=== PATIENT | male | born 1970 | race Caucasian/White ===

== ENCOUNTER → 2022-02-05 09:04 | Outpatient (BNVA) | payer MEDICARE, MEDICAID, SELFPAY | PROVIDERS: PCP Family Medicine; Referring Provider Family Medicine; Visit Provider Nurse Practitioner Adult Health | DX: Z87.820 Personal history of traumatic brain injury (principal); Z72.0 Tobacco use; F31.9 Bipolar disorder, unspecified; G47.00 Insomnia, unspecified; F11.10 Opioid abuse, uncomplicated; J44.9 Chronic obstructive pulmonary disease, unspecified; G43.709 Chronic migraine without aura, not intractable, without status migrainosus | CPT/HCPCS: 99204; 99205 ==

== ENCOUNTER 2022-06-27 01:02 | Outpatient (CLI) | payer MEDICARE, MEDICAID, SELFPAY ==
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
--- NOTE | 2022-06-27 08:00 | DI.MRI_ITS ---
Exam(s) MR LOWER JOINT LT WO EXAM: MR LOWER JOINT LT WO CLINICAL HISTORY: L KNEE PAIN, S/P MENISCAL REPAIRACUTE MENISCAL TEAR,S83.207A TECHNIQUE: Multiplanar multisequence MRI of the knee was performed. COMPARISON: There are no plain films available time this MRI interpretation. FINDINGS: EFFUSION: There is a small joint effusion. There is no Akhtar cyst in the popliteal fossa. MARROW:There is no evidence of fracture, bone contusion, nor osteochondral defects.. There are no si gnificant osseous lesions. PATELLOFEMORAL COMPARTMENT: The quadriceps tendon is intact. The patellar ligament is intact. There is mild increased signal in the quadriceps fat pad just above the patella. There is a small area of increased signal in the superolateral aspect of the anterior intra-articular Hoffa fat pad. No subc utaneous edema nor fluid anterior to the patella and patellar ligament. Mild uniform thinning of the retropatellar cartilage. No fissure. No osteochondral defect at this l evel. No abnormal intraosseous signal in the patella.There is no intraosseous signal to suggest rece nt patellar dislocation. There are no patellar retinacular tears. CRUCIATE LIGAMENTS: The anterior cruciate ligament is intact.The posterior cruciate ligament is intac t. MEDIAL COMPARTMENT/MEDIAL MENISCUS: There is mild signal abnormality in the posterior horn of the med ial meniscus. There is not violate the articular surface, consistent with myxoid degeneration more s o than a true tear.. There are no chondral defects, osteochondral defects, subarticular marrow edema, nor osteophytes evid ent. MEDIAL COLLATERAL LIGAMENT: Intact LATERAL COMPARTMENT/LATERAL MENISCUS: There is no evidence of lateral meniscal tear.There are no ben dral defects, osteochondral defects, subarticular marrow edema, nor osteophytes evident. ILIOTIBIAL BAND: Intact LATERAL COLLATERAL LIGAMENT COMPLEX: The fibular collateral ligament is intact. The biceps femoris t endon is intact.Popliteus muscle and tendon are intact. IMPRESSION: 1. Mild findings as described above but without obvious internal derangement. No obvious meniscal te ars nor cruciate ligament tears and no evidence of collateral ligament tears. 2. Small joint effusion noted. DATA REPOSITORY:
== END 2022-06-27 01:22 ==
LOC: DI 01:02
PROVIDERS: PCP Family Medicine; Visit Provider Student in an Organized Health Care Education/Training Program
DX: M25.562 Pain in left knee (principal); M25.462 Effusion, left knee; M25.862 Other specified joint disorders, left knee
CPT/HCPCS: 73721

== ENCOUNTER 2022-07-08 13:57 | Outpatient (CLI) | payer MEDICARE, MEDICAID, SELFPAY ==
--- NOTE | 2022-07-08 13:45 | DI.RAD_ITS ---
Exam(s) XR KNEE LT 3V AP,LAT,TERESA EXAM: XR KNEE LT 3V AP,LAT,TERESA CLINICAL HISTORY: left knee pain s/p fall. TECHNIQUE: 2D digital imaging was performed. Three views. COMPARISON: No exams were available for comparison FINDINGS: BONES: No acute fracture is present. No bony destructive lesion is seen. Enthesophyte at quadricep s insertion on the patella. JOINTS: The knee is normally aligned. No joint effusion is seen. No significant degenerative changes. SOFT TISSUE: Normal. IMPRESSION: Patellar enthesophyte. No acute abnormality. DATA REPOSITORY: RADIATION DOSE DELIVERED:
== END 2022-07-08 13:58 | disposition home or self-care (01) ==
LOC: DIORS 13:57
PROVIDERS: PCP Family Medicine; Referring Provider Family Medicine; Visit Provider Student in an Organized Health Care Education/Training Program
DX: S83.282A Other tear of lateral meniscus, current injury, left knee, initial encounter (principal); S83.92XA Sprain of unspecified site of left knee, initial encounter; W10.8XXA Fall (on) (from) other stairs and steps, initial encounter; M79.18 Myalgia, other site
CPT/HCPCS: 20610; 73562; 99203; 99213; J1030

== ENCOUNTER → 2022-08-27 13:00 | Outpatient (BNVA) | payer MEDICARE, MEDICAID, SELFPAY | PROVIDERS: PCP Family Medicine; Visit Provider Student in an Organized Health Care Education/Training Program ==